=== PATIENT | male | born 1955 | race Caucasian/White ===

== ENCOUNTER 2016-12-02 09:58 | Inpatient (IN) | payer OTHER ==
[~2016-12-02] VITALS: Ht 157.5 cm; Wt 60.8 kg
[~2016-12-02 09:58] MED LIST: COMPAZINE5 M1 PO; FLOMAX0.4 MG PO; KEFLEX250 MG PO; LEVAQUIN500 MG PO; TYLENOL EXTRA500 M2 PO; ZOFRAN8 MG PO
--- NOTE | 2016-12-02 10:30 | NUR ---
Patient ambulated to bed 7 at this time.
[2016-12-02 10:37] VITALS: BP 90/53
--- NOTE | 2016-12-02 10:40 | NUR ---
61/M BIB DAUGHTER C/O PT'S TREATING MD INSTRUCTED PT TO ENTER NEAREST ER 2 TO TUMORLYSIS SYNDROME REPORTED THIS AM. 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 DENIES N/V/D AT THIS TIME; SKIN IS PINK/WARM/DRY; AAOX4 WITH EVEN AND UNSTEADY GAIT; LUNGS CLEAR BL; HR EVEN AND REGULAR; PT DENIES ANY FEVER, CP, SOB, OR COUGH AT THIS TIME; PATIENT STATES PAIN OF 3/10 AT THIS TIME; VSS; PATIENT POSITIONED FOR COMFORT; HOB ELEVATED; BEDRAILS UP X2; BED DOWN. ER MD MADE AWARE OF PT STATUS.
[2016-12-02] MEDS ORDERED: ONDANSETRON 4 MG/2 ML VIAL IVP ONE (10:50)
[2016-12-02] MEDS ORDERED: MORPHINE SULFATE 4 MG/ML SYR IVP ONE (10:50)
[2016-12-02] MEDS ORDERED: NACL 0.9% 1,000 ML IV ONE ×3 (10:50→13:05)
[2016-12-02] MEDS ORDERED: NACL 0.9% 1,000 ML IV SCH ×3 (13:11→19:44)
[2016-12-02] MEDS ORDERED: HYDROcodone/APAP 5/325 MG 1 TAB TAB PO PRN ×2 (13:15)
[2016-12-02] MEDS ORDERED: ONDANSETRON 4 MG/2 ML VIAL IVP PRN (13:15)
[2016-12-02] MEDS ORDERED: ALBUMIN HUMAN 25% 50 ML IV SCH (14:00)
--- NOTE | 2016-12-02 14:22 | NUR ---
GAVE REPORT TO INES
--- NOTE | 2016-12-02 14:28 | NUR ---
Patient will be admitted to care of DR MADRID. Admited to TELE. Will go to room 109B Belongings list completed. Report to INES.
[2016-12-02 15:00] VITALS: BP 82/47
--- NOTE | 2016-12-02 15:00 | NUR ---
RECEIVED PT ON UNIT, PT A/OX4, AMBULATORY, SKIN IS INTACT, IV ON THE LEFT FA, PATENT, INTACT, FLUSHING WELL, INITIAL ASSESSMENT DONE, PT HAS BILATERAL LOWER EXTREMITY PITTING EDEMA, NO S/S OF RESPIRATORY DISTRESS OR DISCOMFORT NOTED, SAFETY/FALL PRECAUTIONS IN PLACE, ORIENTED PT TO ROOM, DISCUSSED PLAN OF CARE WITH PT, PT VERBALIZED UNDERSTANDING, DR. MADRID IS AT BEDSIDE, CALL LIGHT IS WITHIN REACH, WILL CONTINUE TO MONITOR.
[2016-12-02 16:00] VITALS: BP 84/51
--- NOTE | 2016-12-02 17:00 | NUR ---
PT RESTING IN BED WATCHING TV, NO S/S OF RESPIRATORY DISTRESS OR DISCOMFORT NOTED, CALL LIGHT WITHIN REACH.
[2016-12-02] MEDS ORDERED: CEPHALEXIN 250 MG CAP PO SCH (18:00)
--- NOTE | 2016-12-02 19:30 | NUR ---
RECEIVED REPORT FROM DAY SHIFT NURSE. PT IS AAOX4, DENIES PAIN. ON ROOM AIR, NO S/S OF RESPIRATORY DISTRESS/DISCOMFORT NOTED. IV SITE IS PATENT AND INTACT. PLAN OF CARE DISCUSSED. SAFETY MEASURES CHECKED, CALL LIGHT WITHIN REACH. WILL CONTINUE TO MONITOR.
--- NOTE | 2016-12-02 19:30 | NUR ---
ENDORSED PT TO JOSELUIS MILLER. FOR CONTINUITY OF CARE, PT STABLE AT THIS TIME.
[2016-12-02 20:00] VITALS: BP 88/53
--- NOTE | 2016-12-02 20:00 | NUR ---
V/S CHECKED AND STABLE. DENIES PAIN. NO SOB NOTED.
[2016-12-03] VITALS: BP 87/52
--- NOTE | 2016-12-03 00:10 | NUR ---
EYES CLOSED, RESTING QUIETLY, BREATHING EVEN AND UNLABORED. AROUSABLE TO NAME, V/S CHECKED AND STABLE. CALL LIGHT WITHIN REACH.
[2016-12-03] MEDS: NACL 0.9% 500 ML IV SCH ×4 (00:30→19:56)
--- NOTE | 2016-12-03 02:15 | NUR ---
PT CHECKED, SLEEPING. NOT IN DISTRESS. NO S/S OF RESPIRATORY DISTRESS/DISCOMFORT NOTED.
[2016-12-03 04:00] VITALS: BP 90/50
--- NOTE | 2016-12-03 04:00 | NUR ---
V/S CHECKED AND STABLE. NO S/S OF RESPIRATORY DISTRESS/DISCOMFORT NOTED.
--- NOTE | 2016-12-03 06:05 | NUR ---
PT AWAKE AND RESTING QUIETLY, NOT IN DISTRESS. CALL LIGHT WITHIN REACH.
--- NOTE | 2016-12-03 07:04 | NUR ---
PATIENT HAS BEEN SCREENED AND CATEGORIZED LOW NUTRITION RISK. PATIENT WILL BE SEEN WITHIN 7 DAYS OF ADMISSION. 12/09/16 LASHAWN VASQUEZ MS, RDN
--- NOTE | 2016-12-03 07:15 | NUR ---
ENDORSED REPORT TO DAY SHIFT NURSE FOR CONTINUITY OF CARE. PT IN STABLE CONDITION.
--- NOTE | 2016-12-03 07:30 | NUR ---
RECEIVED REPORT FROM NIGHT NURSE. PT AOX4, ABLE TO VERBALIZE NEEDS. HOUSING GRANT ANALYST IN PLACE. IV ACCESS ASYMPTOMATIC, PATENT AND INTACT. IVF INFUSING WELL. PITTING EDEMA NOTED. PT DENIES CP, SOB. NO S/S OF ACUTE DISTRESS. DISCUSSED AND REVIEWED PLAN OF CARE WITH PT, PT APHASIC, WILL CONTINUE TO REINFORCE TEACHING. SAFETY MEASURES ENSURED. CALL LIGHT WITHIN REACH. WILL CONTINUE TO MONITOR. Addendum: 12/03/16 at 1145 by Terrance Cerna RN IV SALINE LOCKED.
--- NOTE | 2016-12-03 07:45 | NUR ---
NEUTROPENIC PRECAUTIONS IN PLACE DUE TO LOW WBC. NO S/S OF INFECTION. WILL CONTINUE TO MONITOR.
[2016-12-03 08:00] VITALS: BP 97/56
[2016-12-03] MEDS: ACETAMINOPHEN 325 MG TAB PO PRN ×2 (09:45→19:59)
--- NOTE | 2016-12-03 09:50 | NUR ---
99.4 TEMP NOTED. COOLING MEASURES, ICE PACKS AND APAP IN PLACE. NO S/S OF INFECTION. PT VERBALIZES UNDERSTANDING. WILL CONTINUE TO MONITOR.
[2016-12-03 12:00] VITALS: BP 96/53
[2016-12-03] MEDS ORDERED: SODIUM POLYSTYRENE 15 GM/60 ML UDBTL PO SCH (13:00)
--- NOTE | 2016-12-03 14:05 | NUR ---
CONDITION STABLE. ALL NEEDS MET. IVF INFUSING WELL. SAFETY MEASURES ENSURED. CALL LIGHT WITHIN REACH. WILL CONTINUE TO MONITOR.
[2016-12-03 16:00] VITALS: BP 106/59
--- NOTE | 2016-12-03 16:00 | NUR ---
CALLED PHARMACY TO ASK IF MEDICATION EL[facility]K IS AVAILABLE, PHARMACY VERIFIED THAT EL[facility]K IS AVAILABLE.
--- NOTE | 2016-12-03 18:21 | NUR ---
CONDITION STABLE. ALL NEEDS MET. IVF INFUSING WELL. SAFETY MEASURES ENSURED. CALL LIGHT WITHIN REACH. WILL CONTINUE TO MONITOR.
[2016-12-03] MEDS ORDERED: ALLOPURINOL 300 MG TAB PO SCH (19:05)
--- NOTE | 2016-12-03 19:06 | NUR ---
ELITEK UNAVAILABLE AT THIS TIME. NOTIFIED DR AGUILA (HYDRO MECHANIC FOR TANNER), ALLOPURINOL 300MG PO X1 ORDERED. NOTIFIED DR CRAWFORD (HYDRO MECHANIC FOR JULIUS), NO FURTHER ORDERS AT THIS TIME. WILL ENDORSE TO PREFITTER DOORS.
--- NOTE | 2016-12-03 19:30 | NUR ---
ENDORSED PLAN OF CARE TO DIRECTOR OF STRATEGY & MOBILE RN.
--- NOTE | 2016-12-03 19:45 | NUR ---
RECEIVED PT IN STABLE CONDITION FROM AM NURSE. AWAKE, ALERT AND ORIENTED X4. AMBULATORY. WITH NO ACUTE DISTRESS NOTED. PT ON NEUTROPENIC PRECAUTION. PT MADE AWARE OF THE PLAN OF CARE. VERBALIZED UNDERSTANDING. WITH IVF INFUSING WELL ON THE RT FA#[id number]. CLEAR AND PATENT. CALL LIGHT AND URINAL PLACED WITHIN EASY REACH . INSTRUCTED TO CALL FOR ANY ASSISTANCE. WILL CONTINUE TO MONITOR.
[2016-12-03 19:50] VITALS: BP 109/65
--- NOTE | 2016-12-03 22:00 | NUR ---
SLEEPING AT THIS TIME. NO S/S OF ANY DISCOMFORT NOT PAIN NOTED.
[2016-12-04] VITALS: BP 102/65
--- NOTE | 2016-12-04 02:00 | NUR ---
SLEEPING WELL AT THIS TIME. NO S/S OF ANY DISCOMFORT NOTED. WILL CONTINUE TO MONITOR.
[2016-12-04] MEDS: NACL 0.9% 500 ML IV SCH ×6 (03:50→22:10)
--- NOTE | 2016-12-04 04:30 | NUR ---
AWAKE. NO C/O ANY DISCOMFORT NOR PAIN NOTED.
--- NOTE | 2016-12-04 06:45 | NUR ---
LAB CALLED FOR CRITICAL LABS WBC 0.5 PLATELETS 23 HGB 7.1 AND HCT 21.7 , DR. CRAWFORD DIAGNOSTIC TECH FOR DR.SHIN Carlisle PAGED AND CALLED BACK. MADE AWARE, NO NEW ORDER MADE. WILL ENDORSE TO AM NURSE.
--- NOTE | 2016-12-04 07:15 | NUR ---
ENDORSED PT IN STABLE CONDITION TO AM NURSE.
--- NOTE | 2016-12-04 07:30 | NUR ---
RECEIVED REPORT FROM NIGHT NURSE. PT AOX4, ABLE TO VERBALIZE NEEDS. ALL NEEDS MET. PT EATING INDEPENDENTLY IN HIGH FOWLERS. PT DENIES CP, SOB, CHILLS OR S/S OF ACUTE DISTRESS. CLINICAL PROGRAM MANAGER IN PLACE. BLE PITTING EDEMA NOTED. IV ACCESS ASYMPTOMATIC, PATENT AND INTACT. IVF INFUSING WELL. REVIEWED AND DISCUSSED PLAN OF CARE WITH PT, PT VERBALIZES UNDERSTANDING. SAFETY MEASURES AND NEUTROPENIC PRECAUTIONS MAINTAINED. CALL LIGHT WITHIN REACH. WILL CONTINUE TO MONITOR. Addendum: 12/04/16 at 0837 by Terrance Cerna RN CLINICAL PROGRAM MANAGER NOT IN PLACE; CARDIAC MONITORING DISCONTINUED
[2016-12-04 08:00] VITALS: BP 112/61
--- NOTE | 2016-12-04 09:15 | NUR ---
SPOKE WITH KERA, PHARMACY REGARDING ELITEK. SHE STATED THAT DR SOLORIO ALREADY SPOKE WITH SANIYA, DIRECTORY OF PHARMACY BUT DOES NOT KNOW THE DETAILS OF THEIR CONVERSATION. SHE PROVIDED [employer] W[employer]ER'S DIRECT NUMBER FOR DR AGUILA TO FOLLOW UP. CALLED DR AGUILA, STABLE CLEANER FOR DR HART TO UPDATE REGARDING THE ELITEK. CALLED THE DR'S CALL CENTER TO LEAVE THE DIRECT NUMBER FOR SANIYA TO FOLLOW UP.
[2016-12-04] MEDS: ACETAMINOPHEN 325 MG TAB PO PRN (10:04)
--- NOTE | 2016-12-04 10:05 | NUR ---
TEMP 99.6, ICE PACKS AND COOLING MEASURES IN PLACE. APAP ADMINISTERED. CONDITION STABLE. WILL CONTINUE TO MONITOR.
[2016-12-04] MEDS ORDERED: ALLOPURINOL 300 MG TAB PO SCH (13:00)
--- NOTE | 2016-12-04 13:00 | NUR ---
PT C/O CONSTIPATION, WILL MAKE MD AWARE. CONDITION STABLE. NO S/S OF ACUTE DISTRESS. WILL CONTINUE TO MONITOR.
[2016-12-04 16:00] VITALS: BP 116/67
--- NOTE | 2016-12-04 16:00 | NUR ---
TEMP 99.9, COOLING MEASURES IN PLACE. NO C/O CHILLS OR S/S OF INFECTION. CONDITION STABLE. WILL CONTINUE TO MONITOR.
--- NOTE | 2016-12-04 17:30 | NUR ---
TEMP 98.1, NO S/S OF INFECTION. CONDITION STABLE. WILL CONTINUE TO MONITOR.
--- NOTE | 2016-12-04 19:23 | NUR ---
PATIENT IS CURRENTLY AWAKE ALERT RESTING IN BED WATCHING TV DENIES PAIN IVF INFUSING WELL IV SITE PATENT NO INFILTRATION NOTED.BOTH LOWER EXTREMITIES WITH EDEMA 2+ LT SLIGHTLY MORE THAN RIGHT PILLOW PLACED UNDERNEATH BOTH LEGS TO HELP WITH THE SWELLING.PATIENT REFUSED SCD'S PT STATES,"THEY ARE UNCOMFORTABLE MY LEGS ARE SWOLLEN."EDUCATION WAS GIVEN ON THE IMPORTANCE OF WEARING THE SCD'S FOR DVT PROPHALAXIS PT VERBALIZES UNDERSTANDING.CALL LIGHT WITHIN REACH.
--- NOTE | 2016-12-04 19:23 | NUR ---
ENDORSED PLAN OF CARE TO NIGHT NURSE. CONDITION STABLE.
--- NOTE | 2016-12-04 19:30 | NUR ---
PATIENT STATES,"I HAVEN'T HAD A BOWEL MOVEMENT ITS BEEN ABOUT FOUR DAYS BUT I HAVEN;T REALLY ATE MUCH EITHER."I INFORMED THE PATIENT THAT HE HAS AN ORDER FOR STOOL SOFTENER AND I ENCOURAGED THE PATIENT TO CONTINUE TO DRINK FLUIDS WELL PATIENT VERBALIZES UNDERSTANDING.CALL LIGHT WITHIN REACH.
[2016-12-04 20:00] VITALS: BP 122/67
--- NOTE | 2016-12-04 20:00 | NUR ---
Patient's Plan of Care was discussed and reviewed with APPLICATIONS MANAGER: DEONTE Thomas
[2016-12-04] MEDS: DOCUSATE SODIUM 250 MG GELCAP PO SCH (20:35)
--- NOTE | 2016-12-04 21:20 | NUR ---
PATIENT IS CURRENTLY RESTING IN BED WATCHING TV AT THIS TIME NO PAIN OR DISCOMFORT.
[2016-12-05] VITALS: BP 124/69
[2016-12-05 00:10] VITALS: BP 124/69
--- NOTE | 2016-12-05 00:20 | NUR ---
PATIENT IS AWAKE ALERT RESTING IN BED COMPLAINS OF SOB MD EXCHANGE PAGED SO I CAN GET AN OXYGEN ORDER AND INFORM THE MD ABOUT PATIENT'S CONDITION.
--- NOTE | 2016-12-05 00:36 | NUR ---
EDGARDO ZHOU CALLED BACK AND HE WAS INFORMED PATIENT IS HAVING AN EPISODE OF SOB AND ALSO INFORMED THAT HIS HGB HAS BEEN IN THE LOW BUT PATIENT VITAL SIGNS ARE STABLE AND 02SAT IS 96%.WILL MONITOR THE PATIENT.NEW ORDERS GIVEN BY MD GUTIERREZ.
--- NOTE | 2016-12-05 00:50 | NUR ---
PATIENT STATES HE IS FEELING BETTER AND NO MORE SOB AT THIS TIME.
--- NOTE | 2016-12-05 00:53 | NUR ---
RESPIRATORY THERAPIST CAME TO CHECK ON THE PATIENT.
[2016-12-05] MEDS: NACL 0.9% 500 ML IV SCH ×3 (03:00→14:50)
--- NOTE | 2016-12-05 03:09 | NUR ---
PATIENT IS CURRENTLY RESTING IN BED IN NO DISTRESS NEEDS MET.
--- NOTE | 2016-12-05 06:47 | NUR ---
ROUNDS MADE PATIENT IS CURRENTLY RESTING IN BED DENIES PAIN AND DISCOMFORT IVF INFUSING WELL IV SITE PATENT.NO FILTRATION NOTED PATIENT HAS OXYGENA AT 2L VIA NASAL CANNULA.PATIENT NEEDS MET.CALL LIGHT WITHIN REAWCH.
--- NOTE | 2016-12-05 07:05 | NUR ---
RECEIVED REPORT FROM NIGHT NURSE AT BEDSIDE. PT IS IN BED RESTING AAOX4 ON ROOM AIR. PT SHOWS NO S/S OF DISTRESS. IV NOTED ON R FOREARM PATENT AND INTACT WITH IVF RUNNING. SKIN IS INTACT. PT BLE WITH PITTING EDEMA 2+ NOTED. LEGS ELEVATED. PT DENIES PAIN. BED IS LOWERED, FLAT, AND CALL LIGHT WITHIN REACH. WILL CONTINUE TO MONITOR.
--- NOTE | 2016-12-05 07:15 | NUR ---
PATIENT STABLE REPORT ENDORSED AT BEDSIDE TO JOSELUIS HOLLOWAY AND JOSELUIS HDEZ.
--- NOTE | 2016-12-05 07:44 | NUR ---
SPOKE WITH DR HART AND INFORMED HIM ABOUT PATIENT'S WBC OF 0.3 AND URIC ACID LEVEL OF 7.3. NO NEW ORDERS RECEIVED
[2016-12-05 07:55] VITALS: BP 122/61
--- NOTE | 2016-12-05 08:30 | NUR ---
ADMINISTERED SCHEDULED MEDICATIONS. PT HAD SHORTNESS OF BREATH. PT PUT ON 2L 02 VIA NC. WILL CONTINUE TO MONITOR.
[2016-12-05] MEDS: DOCUSATE SODIUM 250 MG GELCAP PO SCH (08:37)
[2016-12-05] MEDS ORDERED: ALLOPURINOL 300 MG TAB PO SCH (09:00)
--- NOTE | 2016-12-05 10:10 | NUR ---
PT IS IN ROOM SLEEPING AND SHOWS NO S/S OF DISTRESS. PT STATES HAS NO TROUBLE BREATHING. RESPIRATORY BREATHS PER MINUTE 20 AND SAT 02 99% VIA 02 2L NC.
--- NOTE | 2016-12-05 12:15 | NUR ---
PT IS ROOM AIR AND SHOWS NO S/S OF DISTRESS. PT ATE 15% OF LUNCH. PT DENIES SOB. WILL CONTINUE TO MONITOR.
--- NOTE | 2016-12-05 14:00 | NUR ---
PATIENT SEEN BY DR MADRID AND DR HART
[2016-12-05] MEDS ORDERED: ZYLOPRIM300 MG PO (14:03)
[2016-12-05] MEDS ORDERED: COLACE100 MG PO (14:05)
--- NOTE | 2016-12-05 14:37 | NUR ---
NOTIFIED PATIENT'S DAUGHTER THAT THE PATIENT IS BEING DISCHARGED
--- NOTE | 2016-12-05 15:05 | NUR ---
PT HAS BEEN DISCHARGED. ALL PAPERWORK SIGNED. ALL QUESTIONS ANSWERED. ALL BELONGINGS AND PRESCRIPTIONS IN PT'S POSSESSION. IV DISCONTINUED WITH CANNULA INTACT. WRISTBANDS REMOVED. PT LEFT IN WHEELCHAIR WITH FAMILY PRESENT AT SIDE. PT IN STABLE CONDITION.
== END 2016-12-05 15:05 | disposition home or self-care (01) | DRG 460 ==
LOC: MED 09:58 → MTU 13:16
PROVIDERS: ADMIT Hospitalist; ATTEND Hospitalist
DX: E88.3 Tumor lysis syndrome (principal); D61.810 Antineoplastic chemotherapy induced pancytopenia; C85.93 Non-Hodgkin lymphoma, unspecified, intra-abdominal lymph nodes; R79.89 Other specified abnormal findings of blood chemistry; M79.89 Other specified soft tissue disorders; T45.1X5A Adverse effect of antineoplastic and immunosuppressive drugs, initial encounter; Y92.89 Other specified places as the place of occurrence of the external cause